=== PATIENT | female | born 1960 | race Caucasian/White ===

== ENCOUNTER 2018-12-14 09:41 | Emergency (ER) | payer OTHER ==
--- NOTE | 2018-12-14 09:58 | PHYS DOC ---
Past History Past Medical History: COPD, Fibromyalgia, High Cholesterol, Hypertension Past Surgical History: , Hysterectomy, Tonsillectomy, Other Additional Past Surgical Histo: breast reduction Smoking: Cigarettes Drug Use: None Adult General Chief Complaint Chief Complaint: KNEE INJURY HPI HPI Patient is a 57-year-old female presents complaining of right knee pain. Patient was cutting down a tree when she twisted her ankle and fell on her knee. She has been able to walk on it. This happened shortly prior to arrival. Reports the pain is growing worse. Denies any ankle pain. Denies any numbness, tingling or paresthesias. She is taken no medicine for the pain. Nothing seems to make the discomfort better. Movement and walking makes it worse. Pain is moderate in intensity. No radiation of the pain.[] Review of Systems Review of Systems Constitutional: Denies fever or chills [] Eyes: Denies change in visual acuity, redness, or eye pain [] HENT: Denies nasal congestion or sore throat [] Respiratory: Denies cough or shortness of breath [] Cardiovascular: No chest pain or palpitations[] GI: Denies abdominal pain, nausea, vomiting, bloody stools or diarrhea [] : Denies dysuria or hematuria [] Musculoskeletal: Denies back pain see history of present illness[] Integument: Denies rash or skin lesions [] Neurologic: Denies headache, focal weakness or sensory changes [] Endocrine: Denies polyuria or polydipsia [] All other systems were reviewed and found to be within normal limits, except as documented in this note. Physical Exam Physical Exam Constitutional: Well developed, well nourished, mild discomfort, non-toxic appearance. [] HENT: Normocephalic, atraumatic, bilateral external ears normal, oropharynx moist, no oral exudates, nose normal. [] Eyes: PERRLA, EOMI, conjunctiva normal, no discharge. [] Neck: Normal range of motion, no tenderness, supple, no stridor. [] Cardiovascular:Heart rate regular rhythm, no murmur [] Lungs & Thorax: Bilateral breath sounds clear to auscultation [] Abdomen: Bowel sounds normal, soft, no tenderness, no masses, no pulsatile masses. [] Skin: Warm, dry, no erythema, no rash. [] Back: No tenderness, no CVA tenderness. [] Extremities: Right knee shows no erythema, no edema, no effusion, no ecchymosis. Patient has full active range of motion. It is diffusely tender about the right knee. There is no anterior or posterior drawer, no varus or valgus laxity, negative Trip test. A joint above and joined below were evaluated and were normal. Patient was distally neurovascularly intact. The other 3 extremities show: No tenderness, no cyanosis, no clubbing, ROM intact, no edema. [] Neurologic: Alert and oriented X 3, normal motor function, normal sensory function, no focal deficits noted. [] Psychologic: Affect normal, judgement normal, mood normal. [] EKG EKG [] Radiology/Procedures Radiology/Procedures PROCEDURE: KNEE RIGHT 3V Three-view right knee dated 12/14/2018. No comparison available. CLINICAL INDICATION: Medial knee pain rating down right leg. FINDINGS: 3 views of the right knee show normal bony alignment. No displaced fracture. Mild chondrocalcinosis. No apparent joint effusion or loose body. IMPRESSION: 1. No acute radiographic abnormality. 2. Chondrocalcinosis.[] Course & Med Decision Making Course & Med Decision Making Pertinent Labs and Imaging studies reviewed. (See chart for details) ED course: Patient arrived, was placed in bed, and tolerated exam well. She was transported to and from radiology with any complications. After return the imaging findings, these were discussed with the patient and her who voiced understanding. Patient had knee immobilizer placed. She was distally neurovascularly intact after the knee immobilizer was placed. Patient was discharged in improved condition. Medical decision making: There is no evidence of a fracture or dislocation. No evidence of cruciate ligament or collateral ligament significant injury. No evidence of neurologic or vascular compromise. Patient has narcotic pain medicine at home which I believe will work to manage her pain. She is reportedly unable to tolerate NSAIDs due to GI upset.[] Dragon Disclaimer Dragon Disclaimer This electronic medical record was generated, in whole or in part, using a voice recognition dictation system. Departure Departure: Impression: Primary Impression: Right knee pain Disposition: HOME, SELF-CARE Condition: IMPROVED Referrals: LAY العراقي (PCP) Follow-up in 2 days Patient Instructions: Crutch Use, Knee Immobilizer-Brief, Knee Sprain Additional Instructions: Follow-up with your regular doctor in 2 days. Apply ice to the knee for 15 minutes at a time, at least 4 times a day for the next 3 days. Continue your home pain medication regimen as prescribed. Return to the ER if worsening pain or any other concerns. Problem Qualifiers Primary Impression: Right knee pain Chronicity: acute Qualified Codes: M25.561 - Pain in right knee SEKOU SARABIA DO December 14, 2018 09:58
[2018-12-14] MEDS ORDERED: ACETAMINOPHEN 500 MG TABLET PO ONE (10:00)
--- NOTE | 2018-12-14 10:19 | RAD ---
Three-view right knee dated 12/14/2018. No comparison available. CLINICAL INDICATION: Medial knee pain rating down right leg. FINDINGS: 3 views of the right knee show normal bony alignment. No displaced fracture. Mild chondrocalcinosis. No apparent joint effusion or loose body. IMPRESSION: 1. No acute radiographic abnormality. 2. Chondrocalcinosis. Electronically signed by: Ernie Acosta MD (12/14/2018 10:16 AM) [id number]
[2018-12-14 10:30] VITALS: BP 137/76
== END 2018-12-14 10:58 | disposition home or self-care (01) ==
LOC: ER 09:41
DX: M25.561 Pain in right knee (principal); M11.261 Other chondrocalcinosis, right knee; J44.9 Chronic obstructive pulmonary disease, unspecified; M79.7 Fibromyalgia; E78.00 Pure hypercholesterolemia, unspecified; I10 Essential (primary) hypertension; F17.210 Nicotine dependence, cigarettes, uncomplicated; W18.39XA Other fall on same level, initial encounter; Y93.89 Activity, other specified; Y92.89 Other specified places as the place of occurrence of the external cause; Y99.8 Other external cause status
CPT/HCPCS: 29505; 73562; 99283; 99284

== ENCOUNTER 2021-09-25 19:27 | Emergency (ER) | payer OTHER ==
[~2021-09-25] VITALS: Ht 154.9 cm; Wt 86.2 kg
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
[2021-09-25] MEDS ORDERED: IV RINGERS SOLUTION,LACTATED 1,000 ML IV ONE (19:45)
[2021-09-25] MEDS ORDERED: METOCLOPRAMIDE HCL 10 MG/2 ML VIAL. IVP ONE (19:45)
[2021-09-25] MEDS ORDERED: ONDANSETRON PF 4 MG/2 ML VIAL. IVP ONE (19:45)
--- NOTE | 2021-09-25 20:35 | RAD ---
Exam Date: 09/25/2021 8:[address] HEAD/BRAIN WO Indication: Reason: ETOH, fall / Spl. Instructions: / History: . TECHNIQUE: Head CT was performed without intravenous contrast. One or more of the following dose re duction techniques were utilized: *Automated exposure control (AEC) *Adjustment of mA and/or kV according to patient size *Use of iterative reconstruction technique *CT scan done according to ALARA, or ALARA/IMAGE GENTLY FINDINGS: The ventricles and sulci are normal for the patient's stated age. There is no evidence of acute int racranial hemorrhage, extra-axial collection, mass effect, midline shift, or acute territorial infarc t. No lesion of the skull base or the calvarium is seen. The visualized mastoid air cells and orbits are normal in appearance. Mucosal thickening is seen in the paranasal sinuses. IMPRESSION: No evidence for acute intracranial abnormality. Electronically signed by: Conrad Pemberton MD (09/25/2021 8:32 PM) [id number]
[2021-09-25 20:50] VITALS: BP 128/64
== END 2021-09-25 20:54 | disposition home or self-care (01) ==
LOC: ER 19:27
DX: F10.129 Alcohol abuse with intoxication, unspecified (principal); R11.2 Nausea with vomiting, unspecified; J44.9 Chronic obstructive pulmonary disease, unspecified; M79.7 Fibromyalgia; E78.00 Pure hypercholesterolemia, unspecified; I10 Essential (primary) hypertension; F17.210 Nicotine dependence, cigarettes, uncomplicated; Z88.8 Allergy status to other drugs, medicaments and biological substances; Y90.9 Presence of alcohol in blood, level not specified
CPT/HCPCS: 70450; 96361; 96374; 96375; 99284; J2405; J2765; J7120